=== PATIENT | female | born 1995 | race African-American/Black ===

== ENCOUNTER 2018-07-24 00:42 | Emergency (ER) | payer SELFPAY ==
[~2018-07-24] VITALS: Ht 165.1 cm; Wt 74.8 kg
[2018-07-24 00:47] VITALS: BP 142/79
[2018-07-24] MEDS ORDERED: SODI75SP NS (01:08)
--- NOTE | 2018-07-24 01:08 | PHYS DOC ---
Past Medical History Past Medical History: No Pertinent History Past Surgical History: No Surgical History Alcohol Use: Occasionally Drug Use: Marijuana Adult General Chief Complaint Chief Complaint: NOSE FOREIGN BODY [facility] HPI Patient is a 23 year old female who presents with possible foreign body in her nose. Patient states a couple of days ago she was eating rice when she felt like one went up her right nostril. Patient states her right nostril has been irritated ever since. She has attempted to blow her nose, but has been unable to get rid of the feeling. She denies any nose bleed, fever or chills. Patient is having bilateral congestion which she attributes to her seasonal allergies. Review of Systems Review of Systems Constitutional: Denies fever or chills Eyes: Denies change in visual acuity, redness, or eye pain HENT: Denies nasal congestion or sore throat Respiratory: Denies cough or shortness of breath Cardiovascular: No additional information not addressed in HPI GI: Denies abdominal pain, nausea, vomiting, bloody stools or diarrhea : Denies dysuria or hematuria Musculoskeletal: Denies back pain or joint pain Integument: Denies rash or skin lesions Neurologic: Denies headache, focal weakness or sensory changes Complete systems were reviewed and found to be within normal limits, except as documented in this note. Current Medications Current Medications Current Medications Medications (Trade) Dose Ordered Sig/Nikki Start Time Stop Time Status Last Admin Dose Admin Dexamethasone (Decadron) 10 mg 1X ONCE 07/24/18 01:30 07/24/18 01:31 Allergies Allergies Allergies Coded Allergies Type Severity Reaction Last Updated Verified No Known Drug Allergies 02/25/14 No Physical Exam Physical Exam Constitutional: Well developed, well nourished HENT: Normocephalic, atraumatic, bilateral external ears normal, oropharynx moist, turbinates swollen bilaterally. Eyes: EOMI, conjunctiva normal, no discharge. Neck: Normal range of motion, supple. Cardiovascular:Heart rate regular rhythm, no murmur Lungs & Thorax: Bilateral breath sounds clear to auscultation Abdomen: Soft, no tenderness. Skin: Warm, dry, no erythema, no rash. Back: No tenderness, no CVA tenderness. Extremities: No tenderness, no edema. Neurologic: Alert and oriented X 3, no focal deficits noted. Psychologic: Affect normal, mood normal. Current Patient Data Vital Signs Vital Signs Date Time Temp Pulse Resp B/P (MAP) Pulse Ox O2 Delivery O2 Flow Rate FiO2 07/24/18 00:47 99.1 89 16 142/79 (100) 100 Room Air 99.1 EKG EKG [] Radiology/Procedures Radiology/Procedures [] Course & Med Decision Making Course & Med Decision Making 23 year old female presents to the ED for possible foreign body in nose. Patient believes she got a piece of rice stuck in her nose when she was eating. On nasal exam patient had bilaterally swollen turbinates. No foreign body was appreciated. Symptomatic treatment provided with interval improvement. Patient stable for discharge with outpatient follow-up with PCP. Discussed findings and plan with patient and family, who acknowledge understanding and agreement. Dragon Disclaimer Dragon Disclaimer This electronic medical record was generated, in whole or in part, using a voice recognition dictation system. Departure Departure Impression: Primary Impression: Sensation of foreign body Disposition: 01 HOME, SELF-CARE Condition: STABLE Referrals: UNKNOWN PCP NAME (PCP) Patient Instructions: Nasal Foreign Body, [id number], Nose Drops, Saline, Eas y-to-Read Scripts Sodium Chloride/Sodium Bicarb ([place] SALINE SPRAY) 75 Ml [place] 1 SPR NS QID PRN for IRRITATION, #75 ML Prov: ABHIJEET LIVINGSTON DO 07/24/18 ABHIJEET LIVINGSTON DO Jul 24, 2018 01:08
[2018-07-24] MEDS ORDERED: DEXAMETHASONE 4 MG TABLET PO ONE (01:30)
== END 2018-07-24 01:17 | disposition home or self-care (01) ==
LOC: ER 00:42
DX: R09.89 Other specified symptoms and signs involving the circulatory and respiratory systems (principal)
CPT/HCPCS: 99282; J8540